=== PATIENT | female | born 1975 | race Caucasian/White ===

== ENCOUNTER 2018-06-26 06:45 | Emergency (ER) | payer OTHER ==
[~2018-06-26] VITALS: Ht 172.7 cm; Wt 61.3 kg
[2018-06-26] MEDS ORDERED: THIAMINE 100 MG/ML, 2ML ONE (07:14)
[2018-06-26] MEDS ORDERED: FAMOTIDINE 20 MG/2 ML ONE (07:14)
[2018-06-26] MEDS ORDERED: ONDANSETRON 2MG/ML, 2ML ONE (07:14)
[2018-06-26] MEDS ORDERED: LORazepam 2 MG/ML, 1ML IVPush ONE ×2 (07:30→09:00)
[2018-06-26] MEDS ORDERED: SODIUM CHLORIDE FLUSH 10ML SYR IVF ONE (07:30)
[2018-06-26] MEDS ORDERED: SODIUM CHLORIDE 0.9% 1,000ML IVBOLUS ONE (07:30)
[2018-06-26] MEDS ORDERED: FAMOTIDINE 20 MG/2 ML IVP ONE (07:30)
[2018-06-26] MEDS ORDERED: THIAMINE 100 MG/ML, 2ML IM ONE (07:30)
[2018-06-26] MEDS ORDERED: ONDANSETRON 2MG/ML, 2ML IVPush ONE (07:30)
[2018-06-26] MEDS ORDERED: LORazepam 2 MG/ML, 1ML ONE ×2 (07:34→08:40)
[2018-06-26 07:46] LABS: MEAN CORPUSCULAR HEMOGLOBIN 38.1 pg (27.0-34.8); MEAN CORPUSCULAR HGB CONC 34.2 g/dL (32.4-35.8); MEAN CORPUSCULAR VOLUME 111.4 fL (80-100); MEAN PLATELET VOLUME 8.1 fL (7.4-10.4); PLATELET COUNT 168 x10^3/uL (130-400); RED BLOOD COUNT 4.04 x10^6/uL (3.82-5.3); RED CELL DISTRIBUTION WIDTH 17.7 % (9.6-15.2)
[2018-06-26 08:04] LABS: ALANINE AMINOTRANSFERASE 64 U/L (12-78); ALBUMIN 3.7 g/dL (3.4-5.0); ANION GAP 17 mmol/L (5-15); CALCIUM 8.7 mg/dL (8.5-10.1); CHLORIDE 99 mmol/L (98-107); CREATININE 0.71 mg/dL (0.55-1.02)
[2018-06-26 08:06] LABS: ALKALINE PHOSPHATASE 90 U/L (45-117); TOTAL PROTEIN 7.3 g/dL (6.4-8.2)
[2018-06-26 08:24] LABS: BASOPHILS # (AUTO) 0.04 x10^3/uL (0-0.1); BASOPHILS % (AUTO) 1 % (0-1); EOSINOPHILS % (AUTO) 0 % (1-7); LYMPHOCYTES # (AUTO) 0.63 x10^3/uL (1-3.4); LYMPHOCYTES % (AUTO) 11 % (22-44); MD MORPH REVIEW ONLY; MONOCYTES # (AUTO) 0.23 x10^3/uL (0.2-0.8); MONOCYTES % (AUTO) 4 % (2-9); NEUTROPHILS # (AUTO) 4.66 x10^3/uL (1.8-6.8); NEUTROPHILS % (AUTO) 84 % (42-75)
[2018-06-26] MEDS ORDERED: POTASSIUM CHLORIDE 20 MEQ TAB.ER.PRT ONE (08:25)
[2018-06-26 08:26] LABS: <PLATELET ESTIMATE> ADEQUATE; <PLT MORPHOLOGY> NORMAL PLT MORPH; ANISOCYTOSIS 1+
[2018-06-26] MEDS ORDERED: POTASSIUM CHLORIDE 20 MEQ TAB.ER.PRT PO ONE (08:30)
[2018-06-26 09:20] VITALS: BP 131/74
== END 2018-06-26 10:05 | disposition home or self-care (01) ==
LOC: ED 08:10
DX: K29.20 Alcoholic gastritis without bleeding (principal); F10.239 Alcohol dependence with withdrawal, unspecified; E87.6 Hypokalemia; Z71.41 Alcohol abuse counseling and surveillance of alcoholic; F17.210 Nicotine dependence, cigarettes, uncomplicated
CPT/HCPCS: 36415; 80053; 83690; 85025; 96361; 96372; 96374; 96375; 96376; 99283; J2060; J2405; J3411; J3490; J7030